=== PATIENT | male | born 1945 | race Caucasian/White ===

== ENCOUNTER → 2018-06-24 | Day surgery (SDC) | payer OTHER, MEDICARE ==
[~2018-06-24] VITALS: Ht 172.7 cm; Wt 72.6 kg
[~2018-06-24] MED LIST: ROXICODONE5 M1 PO
--- NOTE | 2018-06-24 16:27 | Operative Report ---
Operative/Inv Procedure Report Surgery Date: 06/24/18 Name of Procedure: Robotic repair of bilateral inguinal hernias, TAP with 3D max medium meshes Pre-Operative Diagnosis: Bilateral inguinal hernias Post-Operative Diagnosis: Same, right direct, left pantaloon Estimated Blood Loss: none Surgeon/Pen And Pencil Repairer: Rell ALANIZ,Jaspreet Fry PA-C Anesthesia: general endotracheal tube IV Fluids: 1200 cc crystalloid Implants: 3D max medium meshes right and left Drains: None Specimens: None Complications: None Condition: Excellent to PACU extubated Operative Indication: Sha is a 73-year-old gentleman who 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 He was also noted to have an incidental left inguinal hernia also reducible. He presents for robotic bilateral repair. Operative/Procedure Note Note: Patient was taken to the operating room placed on the operating table in supine position. He had been clipped in the preop holding area. Following and await timeout he underwent an uneventful induction of general endotracheal anesthesia, had his arms tucked by his side, and Venodyne boots in place and received IV antibiotics. The abdomen was then widely prepped with DuraPrep and draped in usual sterile fashion including Ioban. Local anesthetic was now infiltrated in the supraumbilical area where a curvilinear incision was made and carried down to the fascia. Fascia was open vertically for short distance which proved to be just paramedian and so the posterior sheath was opened with the peritoneum and the peritoneal cavity entered safely. Finger sweep revealed there were no adhesions in it and stay sutures were placed followed by placement of a 12 mm sign air seal port Galaviz. Pneumoperitoneum was achieved and the 8 mm 30 da Terry scope inserted. One could immediately see there was bilateral direct hernias with an additional left indirect hernia partially covered by the sigmoid colon. The patient was placed in 15 Trendelenburg position and then 8 mm working ports placed just cephalad to the level of the umbilicus after infiltrating local anesthetic handsbreadth from the midline. Now the da Terry XI robot was docked using arms to 3 and 4 with the camera in the middle and arm to having a fenestrated bipolar with a monopolar herminio in arm for. Arm 1 was sterilely stowed. Beginning on the right side, I created a peritoneal flap 5 cm from the apex of the internal ring and carried this flap across towards the midline across the epigastric vessels which were well seen and preserved and then across the median umbilical ligaments. Dissection was carried down in the preperitoneal plane both lateral to the internal ring lateral musculature to protect the lateral nerves and then working medially all the way down following the back of the rectus muscle to the symphysis pubis and the pubic ramus on the side cleared off so we could see Koebel Lior's ligament quite well. Was a nice areolar plane and 0 blood loss. There was a prominent artery and vein pared running along the top of her Lior's ligament and this was preserved. Now I began dissecting the large direct hernia. With some traction on the sac and the preperitoneal fat associated with it the plane nicely off of the back of the transversalis fascia which was very attenuated and reduce the preperitoneal fat and peritoneum completely rolling it off of all the edges and off of the ramus. I completed the dissection by rolling the peritoneum off of the cord and well down beyond where the vas deviated medially to accommodate the mesh. There was no evidence of a lipoma or an indirect hernia. Now with 3D max medium right mesh was selected and placed into the space where it fit nicely. No buckling or folding of the mesh in the pocket. I secured it at 3 locations with 2-0 Tycron sutures beginning medially on the back of the rectus muscle, more inferiorly to Lior's ligament avoiding the aforementioned vessels and finally out lateral to the epigastrics anteriorly. There was excellent coverage of the entire myopectineal orifice and then the flap was closed with a running 20V lock absorbable suture. A mirror incision was made on the opposite side. On the side the sigmoid colon was adherent obscuring the indirect hernia as well as partially some of the direct hernia. Rather than take down the sigmoid colon I just worked into preperitoneal space and rolled off all the peritoneum with the adherent colon. Same dissection was performed creating the flap across the umbilical ligament and then working the preperitoneal space all the way down to the ramus visualizing the symphysis using the first the direct hernia which came away easily from the thinned out transversalis fascia. And then rolled off of the ramus. Was some retroperitoneal fat by the iliac vessels that was distinct from what was inside the hernia and I these 2 as best as possible without risking any injury to the underlying vessels. There was no evidence of a femoral hernia. I now approach the indirect sac which I carefully dissected out of the internal ring. This was about 5 cm deep and came away easily it from its attachments and the ring as well as off of the cord posteriorly. There is no evidence of any significant lipoma created the lateral space as well preserving some fibrofatty tissue on the lateral musculature. Now with 3 DMax left mesh was selected placed into the space where it sat nicely in cover the entire myopectineal orifice. It was secured in the same locations with 2-0 Tycron suture and then the flap closed with a running 20V lock absorbable suture. Now the robot was undocked and the 8 mm ports removed under direct vision. There was good hemostasis. The Issam port was removed and a closed the peritoneal opening with the posterior sheath with a [id number] suture of 0 Maxon and closed the anterior sheath with the linea alba and 2 [id number] sutures of 0 Maxon. 3-0 Vicryl interrupted sutures were used in the subcu followed by 4-0 Monocryl running subcuticular suture. Steri-Strips 4 x 4 and OpSite were placed. Sha tolerated procedure well taken to recovery room in satisfactory condition extubated with all sponge needle and instrument counts confirmed correct times to completion of the case. He had no notable subcutaneous emphysema and only a mild pneumo scrotum. Findings: Large bilateral direct hernias with a concomitant left-sided indirect hernia ( pantaloon type) Discharge Disposition: PACU
== END ==
LOC: STS 04-22 07:00
DX: K40.20 Bilateral inguinal hernia, without obstruction or gangrene, not specified as recurrent (principal); I10 Essential (primary) hypertension
CPT/HCPCS: C1781; J0131; J0690; J2250; J3490